=== PATIENT | female | born 1985 | race Caucasian/White ===

== ENCOUNTER → 2021-12-16 12:22 | Outpatient (CLI) | payer OTHER, SELFPAY ==
[2021-12-16 14:53] LABS: Hematocrit 40.6 % (36-46); Hemoglobin 13.2 g/dL (12.0-16.0); Mean Corpuscular HGB Conc 32.6 % (30-36); Mean Corpuscular Hemoglobin 27.3 PG (26-34); Mean Corpuscular Volume 83.8 fL (80-100); Platelet Count 416 X10^3/uL (150-400); Red Blood Cell Count 4.85 X10^6/uL (4.0-5.2); Red Cell Distribution Width 14.8 % (11.6-14.8); White Blood Cell Count 8.8 X10^3/uL (4.5-11.0)
[2021-12-16 15:18] LABS: Free T3, Triiodothyronine Free 3.04 pg/mL (2.77-5.27); Free T4, Direct Thyroxine 0.95 ng/dL (0.78-2.19)
[2021-12-16 15:30] LABS: Alanine Aminotransferase 17 IU/L (<35); Albumin 4.2 g/dL (3.5-5.0); Albumin Globulin Ratio 1.1 (1.0-2.8); Alkaline Phosphatase 91 U/L (38-126); Aspartate Aminotransferase 24 IU/L (14-36); BUN Creatinine Ratio 19.5 (6-22); Bilirubin Total 0.4 mg/dL (0.2-1.3); Blood Urea Nitrogen 15 mg/dL (7-17); Calcium 8.7 mg/dL (8.4-10.2); Carbon Dioxide 28 mmol/L (22-32); Chloride 103 mmol/L (98-107); Cholesterol 253 mg/dL (140-199); Estimated Glomerular Filt Rate > 60 mL/min (>60); Globulin 3.7 g/dL (1.7-4.1); Glucose 82 mg/dL (70-100); HDL Cholesterol 57 mg/dL (40-60); HEMOLYSIS < 15 (0-50); LDL Cholesterol Calculated 172 mg/dL (<100); Potassium 3.8 mmol/L (3.4-5.1); Sodium 139 mmol/L (137-145); Total Protein 7.9 g/dL (6.3-8.2); Triglycerides 118 mg/dL (35-150)
[2021-12-16 15:32] LABS: Thyroid Stimulating Hormone 3.67 uIU/mL (0.47-4.68)
[2021-12-17 05:21] LABS: Thyroid Peroxidase Antibodies 378 IU/mL (0-34)
[2021-12-18 03:47] LABS: Thyroid Stimulating Immunoglob 2.05 IU/L (0.00-0.55)
== END ==
PROVIDERS: PCP Registered Nurse Diabetes Educator; Referring Provider Registered Nurse Diabetes Educator; Visit Provider Registered Nurse Diabetes Educator
DX: Z00.00 Encounter for general adult medical examination without abnormal findings (principal); E05.00 Thyrotoxicosis with diffuse goiter without thyrotoxic crisis or storm; R53.83 Other fatigue
CPT/HCPCS: 36415; 80053; 80061; 84439; 84443; 84445; 84481; 85027; 86376

== ENCOUNTER → 2023-12-09 10:32 | Outpatient (CLI) | payer OTHER, SELFPAY ==
--- NOTE | 2023-12-09 10:34 | DI.RAD.S_ITS ---
PROCEDURE: XR LUMBAR SPINE 2-3V INDICATIONS: Pain left side at level of T11-12 and T12-L1 TECHNIQUE: 3 views of the lumbar spine were acquired. COMPARISON: None. FINDINGS: Bones: 5 [id number] vertebrae are present. There is normal bony alignment. No vertebral body compression fractures. No suspicious bony lesions. Mild disc space narrowing and hypertrophic facet joints in the lower lumbar spine Soft tissues: Overlying bowel gas pattern is normal. No suspicious soft tissue calcifications. Cholecystectomy clips in the right upper quadrant IMPRESSION: Mild lower lumbar spine degenerative disc disease and arthropathy. Approved by: Jonel Wesley M.D. on 12/09/2023 at 17:04
--- NOTE | 2023-12-09 10:34 | DI.RAD.S_ITS ---
PROCEDURE: XR THORACIC SPINE 3V INDICATIONS: Pain left side at level of T11-12 and T12-L1 TECHNIQUE: 3 views of the thoracic spine were acquired. COMPARISON: None. FINDINGS: Bones: No fractures or dislocations. No suspicious bony lesions. 12 pairs of ribs are noted, and appear intact where visualized. Soft tissues: No paravertebral stripe thickening. IMPRESSION: No acute bony abnormality. Approved by: Jonel Wesley M.D. on 12/09/2023 at 17:05
== END ==
PROVIDERS: PCP Registered Nurse Diabetes Educator; Referring Provider Physician Assistant; Visit Provider Physician Assistant
DX: M51.360 Other intervertebral disc degeneration, lumbar region with discogenic back pain only (principal); M47.816 Spondylosis without myelopathy or radiculopathy, lumbar region; M54.6 Pain in thoracic spine; M62.838 Other muscle spasm
CPT/HCPCS: 72072; 72100

== ENCOUNTER → 2023-12-15 11:33 | Outpatient (CLI) | payer OTHER, SELFPAY ==
[2023-12-15 12:30] LABS: Hematocrit 40.6 % (36-46); Hemoglobin 13.5 g/dL (12.0-16.0); Mean Corpuscular HGB Conc 33.2 % (30-36); Mean Corpuscular Hemoglobin 27.5 PG (26-34); Mean Corpuscular Volume 82.8 fL (80-100); Platelet Count 355 X10^3/uL (150-400); Red Blood Cell Count 4.91 X10^6/uL (4.0-5.2); Red Cell Distribution Width 15.5 % (11.6-14.8); White Blood Cell Count 8.9 X10^3/uL (4.5-11.0)
[2023-12-15 12:49] LABS: Cholesterol 218 mg/dL (140-199); HDL Cholesterol 38 mg/dL (40-60); LDL Cholesterol Calculated 161 mg/dL (<100); Triglycerides 96 mg/dL (35-150)
[2023-12-15 13:07] LABS: Free T3, Triiodothyronine Free 2.75 pg/mL (2.77-5.27); Free T4, Direct Thyroxine 0.91 ng/dL (0.78-2.19)
[2023-12-15 13:20] LABS: Thyroid Stimulating Hormone 2.65 uIU/mL (0.47-4.68)
[2023-12-16 12:14] LABS: Thyroid Peroxidase Antibodies 476 IU/mL (0-34)
== END ==
PROVIDERS: PCP Registered Nurse Diabetes Educator; Referring Provider Registered Nurse Diabetes Educator; Visit Provider Registered Nurse Diabetes Educator
DX: Z00.00 Encounter for general adult medical examination without abnormal findings (principal); E78.5 Hyperlipidemia, unspecified; Z86.39 Personal history of other endocrine, nutritional and metabolic disease
CPT/HCPCS: 36415; 80061; 84439; 84443; 84445; 84481; 85027; 86376

== ENCOUNTER → 2024-12-12 10:36 | Outpatient (CLI) | payer OTHER, SELFPAY ==
--- NOTE | 2024-12-12 10:38 | DI.US.S_ITS ---
PROCEDURE: US PELVIC COMPLETE INDICATIONS: eval menorrhagia TECHNIQUE: Real-time scanning was performed of the pelvic organs, with image documentation. Additional endovaginal scanning was necessary due to incomplete visualization of the adnexal and endometrial structures by transabdominal scanning. COMPARISON: None. FINDINGS: Uterus: Uterus is anteverted and normal in size at 9.0 x 4.5 x 5.2 cm. The myometrium is heterogeneous. Fibroids identified. The endometrium measures 6 mm combined thickness. Incidental nabothian cysts are noted. Ovaries: The right ovary measures 3.0 x 3.0 x 2.0 cm, with a calculated ovarian volume of 9.1 cc. The left ovary measures 1.2 x 1.2 x 1.1 cm, with a calculated ovarian volume of 1.0 cc. The ovaries have a normal sonographic appearance. Less than 12 follicles can be seen in each ovary. No adnexal masses are seen. Other: No pathologic free abdominal or pelvic fluid. IMPRESSION: No concerning uterine fibroids. Normal endometrium. No focal thickening or abnormal endometrial mass lesion. Normal bilateral ovaries and adnexa. We strive to produce accurate, complete, and clear reports of imaging services. To assist us in improving patient care, this report was composed using standard report templates and voice recognition software. Therefore, it may contain abnormal punctuation, insertions and/or omissions. Occasional wrong-word or sound-alike substitutions may occur. Though we review the report and make efforts to correct it, we do recommend that the report be read carefully in proper context to recognize any text inaccuracies. Dictated by: Lita Alonso M.D. on 12/12/2024 at 15:48 Approved by: Lita Alonso M.D. on 12/12/2024 at 15:52
[2024-12-12 11:49] LABS: Add Manual Diff / Slide Review NO; Hematocrit 38.0 % (36-46); Hemoglobin 12.7 g/dL (12.0-16.0); Lymphocytes Absolute Auto 2100 /uL (1100-4500); Mean Corpuscular HGB Conc 33.5 % (30-36); Mean Corpuscular Hemoglobin 26.7 PG (26-34); Mean Corpuscular Volume 79.9 fL (80-100); Platelet Count 368 X10^3/uL (150-400)
[2024-12-12 11:57] LABS: Alanine Aminotransferase 17 IU/L (<35); Alkaline Phosphatase 81 U/L (38-126); Blood Urea Nitrogen 14 mg/dL (7-17); Carbon Dioxide 24 mmol/L (22-32); Estimated Glomerular Filt Rate > 60 mL/min (>60); HEMOLYSIS < 15 (0-50)
[2024-12-12 12:01] LABS: Albumin 4.2 g/dL (3.5-5.0); Albumin Globulin Ratio 1.3 (1.0-2.8); Calcium 9.0 mg/dL (8.4-10.2); Chloride 105 mmol/L (98-107); Cholesterol 231 mg/dL (140-199); Globulin 3.3 g/dL (1.7-4.1); Glucose 87 mg/dL (70-99); HDL Cholesterol 48 mg/dL (40-60); HEMOLYSIS < 15 (0-50); Iron 41 ug/dL (37-170); Magnesium 1.9 mg/dL (1.6-2.3); Potassium 4.1 mmol/L (3.4-5.1); Sodium 137 mmol/L (137-145); Total Protein 7.5 g/dL (6.3-8.2); Triglycerides 117 mg/dL (35-150)
[2024-12-12 12:09] LABS: Follicle Stimulating Hormone 4.23 mIU/mL
[2024-12-12 12:10] LABS: Vitamin D 25 Hydroxy (D3) 28.2 ng/mL (30.0-100.0)
[2024-12-12 12:12] LABS: Percent Iron Saturation 12 % (15-50); Total Iron Binding Capacity 345 ug/dL (265-497); Transferrin 277 mg/dL (206-381)
[2024-12-12 12:19] LABS: Free T4, Direct Thyroxine 0.77 ng/dL (0.78-2.19)
[2024-12-12 12:24] LABS: Estradiol, Total 35.9 pg/mL
[2024-12-12 12:31] LABS: Ferritin 10 ng/mL (6-137)
[2024-12-12 12:33] LABS: Thyroid Stimulating Hormone 3.90 uIU/mL (0.47-4.68)
== END ==
PROVIDERS: PCP Registered Nurse Diabetes Educator; Referring Provider Registered Nurse Diabetes Educator; Visit Provider Registered Nurse Diabetes Educator
DX: N92.0 Excessive and frequent menstruation with regular cycle (principal); R23.2 Flushing; R00.2 Palpitations; Z86.39 Personal history of other endocrine, nutritional and metabolic disease; E78.5 Hyperlipidemia, unspecified; L65.9 Nonscarring hair loss, unspecified; L65.0 Telogen effluvium; L64.9 Androgenic alopecia, unspecified
CPT/HCPCS: 36415; 76830; 76856; 80053; 80061; 82306; 82670; 82728; 83001; 83498; 83540; 83550; 83735; 84146; 84403; 84439; 84443; 84480; 85025

== ENCOUNTER → 2024-12-12 12:14 | Outpatient (CLI) | payer OTHER, SELFPAY | LOC: CAR 12:19 | PROVIDERS: PCP Registered Nurse Diabetes Educator; Referring Provider Registered Nurse Diabetes Educator; Visit Provider Registered Nurse Diabetes Educator | DX: I49.9 Cardiac arrhythmia, unspecified (principal); R00.0 Tachycardia, unspecified; R00.2 Palpitations; R23.2 Flushing | CPT/HCPCS: 36415; 76830; 76856; 80053; 80061; 82306; 82670; 82728; 83001; 83498; 83540; 83550; 83735; 84146; 84403; 84439; 84443; 84480; 85025; 93242 ==

== ENCOUNTER → 2025-01-24 11:37 | Outpatient (CLI) | payer OTHER, SELFPAY ==
--- NOTE | 2025-01-24 11:38 | DI.MG.S_ITS ---
MM screening mammo BI: 01/24/2025. BI-RADS: 0 CLINICAL: 39-year old female for bilateral screening mammogram. Tyrer-Cuzick lifetime risk of 13.1%. No personal or first-degree family history of breast cancer. Current reported family history of breast cancer: maternal aunt. PRIOR EXAMS: No prior examinations available. MAMMOGRAPHY TECHNIQUE: 2D and 3D (tomosynthesis) digital mammographic views obtained, with additional images as needed for full coverage. Current study was also evaluated with a Computer Aided Detection (CAD) system. DENSITY B. There are scattered areas of fibroglandular density. MAMMOGRAPHY FINDINGS Right: Lower Inner at 4:00, Anterior depth: Focal asymmetry needing additional imaging evaluation. Left: No suspicious mass, asymmetry, microcalcification, or other abnormality seen. IMPRESSION: Right (Asymmetry): Lower Inner at 4:00, Anterior depth * Incomplete - focal asymmetry needing additional imaging evaluation. Left * No evidence of malignancy. RECOMMENDATIONS Right: Lower Inner at 4:00, Anterior depth * Further evaluation with diagnostic mammography and diagnostic ultrasound. Ultrasound to be performed only if needed. OVERALL ASSESSMENT CATEGORY BI-RADS-0: Incomplete - Need Additional Imaging Evaluation. ELECTRONICALLY SIGNED: Hai Patton M.D. on 01/25/2025 at 07:17:39 AM PT Interpreting Station ID: [id number]
== END ==
LOC: MAMMO 11:37
PROVIDERS: PCP Registered Nurse Diabetes Educator; Referring Provider Registered Nurse Diabetes Educator; Visit Provider Registered Nurse Diabetes Educator
DX: Z12.31 Encounter for screening mammogram for malignant neoplasm of breast (principal); R92.8 Other abnormal and inconclusive findings on diagnostic imaging of breast; Z80.3 Family history of malignant neoplasm of breast
CPT/HCPCS: 77063; 77067

== ENCOUNTER → 2025-01-25 15:39 | Outpatient (CLI) | payer OTHER, SELFPAY | PROVIDERS: PCP Registered Nurse Diabetes Educator; Visit Provider Registered Nurse Diabetes Educator | DX: N89.8 Other specified noninflammatory disorders of vagina (principal) | CPT/HCPCS: 87210; 87220 ==